=== PATIENT | male | born 1945 | race Caucasian/White ===

== ENCOUNTER 2018-02-06 10:59 | Outpatient (CLI) | payer MEDICARE ==
[2018-02-06 13:08] LABS: #Basophils 0.1 thou/uL (0.0-0.2); #Eosinphils 0.1 thou/uL (0.0-0.7); #Lymphocytes 1.7 thou/uL (1.20-3.40); #Monocytes 0.9 thou/uL (0.11-0.59); #Neutrophils 7.2 thou/uL (1.40-6.50); %Basophils 0.6 % (0.0-1.0); %Eosinophils 1.2 % (0.0-10.0); %Lymphocytes 16.8 % (21.0-51.0); %Monocytes 8.9 % (0.0-10.0); %Neutrophils 72.6 % (42.0-75.0); Hemoglobin 14.7 g/dL (14.0-18.0); Mean Corpuscular HGB CONC 33.4 g/dL (32.0-36.0); Mean Corpuscular Hemoglobin 28.8 pg (27.0-31.0); Mean Platelet Volume 7.5 fL (7.4-10.4); Platelet Count 233 thou/uL (130-400); RBC Distribution Width 15.4 % (11.5-14.5); White Blood Cell (WBC) Count 9.9 thou/uL (4.8-10.8)
[2018-02-06 13:20] LABS: INR-International Normal Ratio 1.2; PTT 30.1 SEC (22.9-36.1); Prothrombin Time 15.5 SEC (12.0-14.7)
[2018-02-06 13:35] LABS: ALT (SGPT) 15 U/L (8-55); AST (SGOT) 18 U/L (5-34); Alkaline Phosphatase 58 U/L (40-150); Anion Gap 14 mmol/L (10-20); BUN (Urea Nitrogen) 13 mg/dL (8.4-25.7); Bilirubin, Total 0.9 mg/dL (0.2-1.2); Calc. Creatinine Clearance 0 mL/min (70-130); Calcium 9.4 mg/dL (7.8-10.44); Carbon Dioxide 29 mmol/L (23-31); Chloride 99 mmol/L (98-107); Estimated GFR-MDRD Greater than 90; Globulin 3.1 g/dL (2.4-3.5); Glucose 136 mg/dL (83-110); Potassium 3.4 mmol/L (3.5-5.1); Protein, Total 7.1 g/dL (5.8-8.1); Sodium 139 mmol/L (136-145)
== END 2018-02-06 11:00 | disposition home or self-care (01) ==
LOC: LABBT 10:59
PROVIDERS: ATTEND Internal Medicine Cardiovascular Disease
DX: Z01.812 Encounter for preprocedural laboratory examination (principal); I25.10 Atherosclerotic heart disease of native coronary artery without angina pectoris
CPT/HCPCS: 80053; 85025; 85610; 85730

== ENCOUNTER 2018-02-09 05:38 | Day surgery (SDC) | payer MEDICARE ==
[2018-02-06 11:31] VITALS: BMI 33.9
[2018-02-09 07:24] LABS: Cardiac Risk 6.5 (Less than 4.5)
[2018-02-09] MEDS ORDERED: Lidocaine 1% (PF) 30 ML VIAL ONE (08:40)
[2018-02-09] MEDS ORDERED: Nitroglycerin 100MG/250ML BOT 0 ML ONE (08:40)
[2018-02-09] MEDS ORDERED: Heparin 10,000 UNITS/1 ML VIAL ONE (08:40)
[2018-02-09] MEDS ORDERED: Verapamil 5 MG/2 ML VIAL ONE (08:50)
[2018-02-09] MEDS ORDERED: Midazolam HCl 2 mg/2 ml Vial ONE ×2 (09:02→13:04)
[2018-02-09] MEDS ORDERED: Fentanyl 100 MCG/2 ML VIAL ONE ×2 (09:02→13:26)
[2018-02-09] MEDS ORDERED: Iopamidol 370 76% 50 ML VIAL FS ONE (09:46)
[2018-02-09] MEDS ORDERED: Iopamidol 370 76% 100 ML VIAL ONE (09:46)
[2018-02-09] MEDS ORDERED: HYDROcodone/Acetaminophen 10/325 mg Tablet ONE (11:53)
[2018-02-09] MEDS ORDERED: hydrALAZINE 20 MG/ML VIAL ONE (12:35)
--- NOTE | 2018-02-09 22:45 | EKG ---
Test Reason : POST STENT Blood Pressure : / mmHG Vent. Rate : 086 BPM Atrial Rate : 125 BPM P-R Int : 000 ms QRS Dur : 110 ms QT Int : 380 ms P-R-T Axes : 000 -33 121 degrees QTc Int : 454 ms Atrial fibrillation Left axis deviation Abnormal ECG When compared with ECG of 09-FEB-2018 11:37, (Unconfirmed) No significant change was found Confirmed by ERIC PIMENTEL, . SBirgit ([id number]) on 02/09/2018 10:44:58 PM Referred By: AMINA Confirmed By:DR. Gabrielle REYES MD
== END 2018-02-09 16:42 | disposition home or self-care (01) ==
LOC: CCL 05:38
PROVIDERS: ATTEND Internal Medicine Cardiovascular Disease
PROC: 027135Z Dilation of Coronary Artery, Two Arteries with Two Drug-eluting Intraluminal Devices, Percutaneous Approach (ICD-10-PCS; principal; 2018-02-09)
PROC: 4A023N7 Measurement of Cardiac Sampling and Pressure, Left Heart, Percutaneous Approach (ICD-10-PCS; 2018-02-09)
PROC: B2111ZZ Fluoroscopy of Multiple Coronary Arteries using Low Osmolar Contrast (ICD-10-PCS; 2018-02-09)
DX: I25.10 Atherosclerotic heart disease of native coronary artery without angina pectoris (principal); I48.2 Chronic atrial fibrillation; I25.5 Ischemic cardiomyopathy; I35.0 Nonrheumatic aortic (valve) stenosis; E78.00 Pure hypercholesterolemia, unspecified; E11.9 Type 2 diabetes mellitus without complications; E78.5 Hyperlipidemia, unspecified; F32.9 Major depressive disorder, single episode, unspecified; Z95.5 Presence of coronary angioplasty implant and graft; Z79.01 Long term (current) use of anticoagulants; Z79.4 Long term (current) use of insulin; Z79.82 Long term (current) use of aspirin; Z79.899 Other long term (current) drug therapy
CPT/HCPCS: 36415; 36416; 80061; 85347; 92928; 93005; 93458; 96374; 99152; 99153; C1769; C1874; C9600; J0360; J1644; J2001; J2250; J3010

== ENCOUNTER 2018-09-28 11:19 | Outpatient (CLI) | payer MEDICARE ==
--- NOTE | 2018-09-28 12:32 | RAD ---
RIGHT SHOULDER 3 VIEWS: HISTORY: Pain in right shoulder following an injury. FINDINGS: Arthrosis changes are noted of the AC and glenohumeral joint. No acute fracture or dislocation. 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 POS: OFF
--- NOTE | 2018-09-28 12:39 | RAD ---
CHEST 1 VIEW AND RIGHT RIBS 2 VIEWS: HISTORY: Right rib pain following a fall. FINDINGS: Heart size is borderline enlarged. There is no pneumothorax or pleural effusion. In the region of t he 7th anterior right rib there is a lucency on the oblique view raising concern for the possibility of a nondisplaced fracture. IMPRESSION: Possible nondisplaced fracture involving the right anterior 7th rib. No pneumothorax or other acute process. POS: OFF
== END 2018-09-28 11:20 | disposition home or self-care (01) ==
LOC: BICRAD 11:19
PROVIDERS: ATTEND Physician Assistant
DX: S49.91XD Unspecified injury of right shoulder and upper arm, subsequent encounter (principal); R07.81 Pleurodynia; M19.011 Primary osteoarthritis, right shoulder

== ENCOUNTER 2018-11-26 06:58 | Day surgery (SDC) | payer MEDICARE ==
[2018-11-26 07:35] VITALS: BP 153/90; TEMP 98.8
[2018-11-26 07:36] VITALS: BMI 33.9
--- NOTE | 2018-11-26 10:19 | CT ---
CT lumbar spine: HISTORY: Back Pain COMPARISON: Noncontrast CT lumbar spine on 11/24/2016. FINDINGS: This examination was performed post myelogram. Vascular calcifications are seen in the abdominal aorta and involving the iliac arteries. Again noted are postsurgical changes lumbar spine with evidence of posterior fusion of the L3-S1 leve ls with bipedicular screws and posterior rods transfix the L3-4, L4-5, and L5-S1 levels. No hardware complication is seen. There is stable grade 1 anterolisthesis of L5 on S1 with stable trace grade 1 anterolisthesis of L4 on L5 as well as suggestion of trace retrolisthesis of L3 on L4. The vertebral body heights are within normal limits. T12-L1 level: There is a mild disc osteophyte complex with vacuum phenomenon seen in the intervertebr al disc. There are facet hypertrophic changes present. As noted on the prior exam, there is mild central canal narrowing. The neural foramen on the right is patent with mild left-sided neural forami nal narrowing. L1-2: There is mild broad-based disc osteophyte complex and facet hypertrophic changes. Mild ligament ous thickening is present. Findings result in moderate central canal narrowing with mild/moderate bilateral neural foraminal narrowing L2-3: There is a disc osteophyte complex with facet hypertrophic changes and ligamentous thickening. There is no opacification of the central canal at this level, and findings are again suggestive of severe central canal narrowing. There is moderate to severe right and moderate left-sided neural fora karen narrowing. L3-4: There is a laminectomy defect at this level. Soft tissue density seen posterior to thecal sac l ikely related to scarring. There is no disc bulge or disc herniation. Central spinal canal and neural foramina are patent. L4-5: Mild posterior osteophyte formation present, but the neural foramina and central canal are [place] nt. Soft tissue density posterior to the level of the thecal sac is likely due to scar tissue. There is contrast outside the confines of the thecal sac which is likely at site of puncture of the t hecal sac related to lumbar puncture. L5-S1: As stated above, there is grade 1 anterolisthesis of L5 on S1. However there is no narrowing o f the thecal sac at this level. There is limited evaluation of each neural foramen due to streak artifact. However, due to degree of anterolisthesis and posterior osteophyte formation, there is at l east moderate and probably severe bilateral neural foraminal narrowing. Findings appear unchanged compared to prior exam in 2017. IMPRESSION: 1. Stable postoperative changes lumbar spine related to posterior fusion of L3-S1 levels. Laminectomy defects are again seen at these levels. 2. Stable grade 1 anterolisthesis of L5 on S1 with suggestion of trace anterolisthesis of L4 on L5 al so similar to prior study. 3. Severe central canal stenosis with moderate left and moderate to severe right-sided neural foramin al narrowing at the L1-2 level. Severe central canal narrowing was also noted on the prior study. No contrast is visualized in the thecal sac at the L2-3 level, but there is contrast within the centr al canal above and below this level.
--- NOTE | 2018-11-26 11:09 | RAD ---
EXAM: XR Myelogram Lumbar Spine PROVIDED CLINICAL HISTORY: Low back pain. History of prior lumbar surgery. Patient complains of bilateral lower extremity radicu lopathy. COMPARISON: None TECHNIQUE: After informed consent was obtained, the patient was placed on the fluoroscopy table in the prone pos ition. An area overlying the L4 vertebral body was marked, and the area was meticulously prepped and draped in usual sterile fashion. Skin and subcutaneous tissues were infiltrated with buffered 1% lidocaine for local anesthesia. A 22-gauge spinal needle was advanced to the level of the thecal sac. The inner stylette was removed with a return of clear cerebral spinal fluid. Approximately 8 mL of Isovue-M 200 contrast was instilled into the thecal sac. The inner stylette was replaced, and the needle was removed. Hemostasis was achieved with direct pressure. Dry sterile dressing was placed at puncture site. Patient was transported to CT scanner for further i maging of the lumbar spine. Patient was then transported to radiology nurses holding for further monitoring prior to discharge. The patient tolerated the procedure well and without immediate complic ation. Fluoroscopy: Time-0.2 minutes Total dose-60.7 mGy meter squared IMPRESSION: 1. Postsurgical changes lower lumbar spine related to posterior fusion with bipedicular screws and po sterior rods transfixing the L3-4, L4-5, and L5-S1 levels. Laminectomy defects are present at these levels. 2. Trace anterolisthesis of L4 on L5 and mild grade 1 anterolisthesis of L5 on S1. There is trace ret rolisthesis of L3 on L4. 3. Prominent vascular calcifications in the abdominal aorta and involving the iliac arteries. 4. Technically successful lumbar myelogram. Please see CT lumbar spine performed after this examinati on for further details.
[2018-11-26] MEDS ORDERED: Iopamidol-M 200 41% 20 ML VIAL ONE (13:22)
== END 2018-11-26 09:20 | disposition home or self-care (01) ==
LOC: RAD 06:58
PROVIDERS: ATTEND Neurological Surgery
DX: M54.16 Radiculopathy, lumbar region (principal); M48.061 Spinal stenosis, lumbar region without neurogenic claudication; I11.0 Hypertensive heart disease with heart failure; I50.9 Heart failure, unspecified; E11.42 Type 2 diabetes mellitus with diabetic polyneuropathy; I25.10 Atherosclerotic heart disease of native coronary artery without angina pectoris; I48.2 Chronic atrial fibrillation; Z79.01 Long term (current) use of anticoagulants; Z79.899 Other long term (current) drug therapy; Z88.0 Allergy status to penicillin; Z88.5 Allergy status to narcotic agent; Z88.8 Allergy status to other drugs, medicaments and biological substances; Z95.5 Presence of coronary angioplasty implant and graft
CPT/HCPCS: 62304; 72132; Q9966

== ENCOUNTER 2019-02-22 09:17 | Outpatient (CLI) | payer MEDICARE ==
[2019-02-22 10:21] LABS: Hemoglobin 13.6 g/dL (14.0-18.0); Mean Corpuscular Hemoglobin 29.6 pg (27.0-31.0); Mean Corpuscular Volume 89.6 fL (78.0-98.0); Mean Platelet Volume 7.1 fL (7.4-10.4); Platelet Count 192 thou/uL (130-400); RBC Distribution Width 13.3 % (11.5-14.5); Red Blood Cell (RBC) Count 4.58 mill/uL (4.70-6.10); White Blood Cell (WBC) Count 9.3 thou/uL (4.8-10.8)
[2019-02-22 10:43] LABS: Anion Gap 12 mmol/L (10-20); BUN (Urea Nitrogen) 12 mg/dL (8.4-25.7); Calc. Creatinine Clearance 0 mL/min (70-130); Calcium 8.8 mg/dL (7.8-10.44); Carbon Dioxide 31 mmol/L (23-31); Chloride 100 mmol/L (98-107); Estimated GFR-MDRD Greater than 90; Glucose 168 mg/dL (83-110); Potassium 4.2 mmol/L (3.5-5.1); Sodium 139 mmol/L (136-145)
== END 2019-02-22 09:18 | disposition home or self-care (01) ==
LOC: LABBT 09:17
PROVIDERS: ATTEND Neurological Surgery
DX: Z01.818 Encounter for other preprocedural examination (principal); M48.061 Spinal stenosis, lumbar region without neurogenic claudication
CPT/HCPCS: 80048; 85027; 93005; 93010

== ENCOUNTER 2019-03-01 06:28 | Day surgery (SDC) | payer MEDICARE ==
[2019-02-22 09:52] VITALS: BMI 33.2
--- NOTE | 2019-02-28 18:07 | HP ---
HISTORY OF PRESENT ILLNESS: Mr. Hawkins is known to our practice for prior evaluation of lower back pain with identified fracture previous fusion construct. He was recommended to have facet and nerve root blocks at that time. He has had several with only limited relief. He returns now with constant pain with symptoms that appear to potentially be radicular, but also symptoms of neurogenic claudication. He has a new CT myelogram performed at [place] that reveals severe L1-L2 canal stenosis that would fit well with his symptoms. PHYSICAL EXAMINATION: GENERAL: He is alert and oriented x3. NEUROLOGIC: His gait is profoundly antalgic, slowed and stooped. His straight leg raise is negative; although, lower extremity exam is limited secondary to pain. PAST MEDICAL HISTORY: Significant for hyperlipidemia, hypertension, congestive heart failure, diabetes, and coronary arterial disease. CURRENT MEDICATIONS: 1. Warfarin. 2. Citalopram. 3. Lisinopril. 4. Metformin. 5. Gabapentin. 6. Clopidogrel. 7. Digoxin. 8. Novolin. 9. Lasix. 10. . 11. Atorvastatin. PAST SURGICAL HISTORY: Cardiac stents, left rotator cuff repair, lumbar spinal fusion, umbilical herniorrhaphy, and cholecystectomy. ASSESSMENT: Lumbar spinal stenosis. PLAN: Dr. Javed met with the patient, reviewed imaging, advocated for L1-L2 decompression. He explained to the patient the risks, benefits, and alternatives to the procedure. The patient expressed understanding and elected to move forward with surgery as discussed. I do believe the patient is mentally competent and capable of making medical decisions for himself. We will move forward with surgery as planned. Job ID: [id number]
[2019-03-01] MEDS ORDERED: Levofloxacin 500 mg/D5W 100 ml Premix Bag ONE (07:24)
[2019-03-01] MEDS ORDERED: Clindamycin/D5W 900 mg/50 ml Premix Bag ONE (07:24)
[2019-03-01] MEDS ORDERED: Thrombin 5000 UNITS/5 ML VIAL ONE (08:09)
[2019-03-01] MEDS ORDERED: Bupivacaine PF 0.5% 30 ML VIAL ONE (08:09)
[2019-03-01] MEDS ORDERED: EPINEPHrine 1 MG/ML AMP ONE (08:09)
[2019-03-01] MEDS ORDERED: Propofol 1,000 MG/100 ML VIAL IV ONE (08:42)
[2019-03-01] MEDS ORDERED: Midazolam HCl 2 mg/2 ml Vial ONE (08:42)
[2019-03-01] MEDS ORDERED: Fentanyl 100 MCG/2 ML VIAL ONE ×3 (08:42→11:27)
[2019-03-01] MEDS ORDERED: SUGAMMADEX SODIUM 500 MG/5 ML VIAL ONE (08:46)
[2019-03-01] MEDS ORDERED: Rocuronium Bromide 50 MG/5 ML VIAL ONE (08:46)
[2019-03-01 09:01] LABS: INR-International Normal Ratio 1.1; PTT 27.1 SEC (22.9-36.1); Prothrombin Time 13.7 SEC (12.0-14.7)
[2019-03-01] MEDS ORDERED: Ondansetron PF 4 MG/2 ML Vial ONE (10:40)
[2019-03-01] MEDS ORDERED: Rocuronium Bromide 10 MG/ML (10ML VIAL) ONE (10:40)
[2019-03-01] MEDS ORDERED: PROPOFOL 200 MG/20 ML VIAL ONE ×2 (10:40)
[2019-03-01] MEDS ORDERED: diphenhydrAMINE 50 MG/ML VIAL ONE (10:40)
[2019-03-01] MEDS ORDERED: Metoclopramide HCl 10 MG/2 ML VIAL ONE (10:40)
[2019-03-01] MEDS ORDERED: Tamsulosin HCl 0.4 MG CAP ONE (11:23)
[2019-03-01] MEDS ORDERED: Morphine 2 MG/ML SYRINGE ONE (12:26)
--- NOTE | 2019-03-01 13:19 | OP ---
DATE OF PROCEDURE: 03/01/2019 INTERIOR MECHANIC: Zackary Ragsdale PA-C INDICATION: Pain. DIAGNOSIS: Adjacent segment stenosis with neurogenic claudication. PROCEDURE PERFORMED: Reoperation of L2-L3 lumbar decompression. ANESTHESIA: General. DESCRIPTION OF PROCEDURE: The patient was brought into the operating room and placed under general anesthesia. He was flipped from the supine to prone position on the operating room table. A linear incision was planned along the superior aspect of previously placed incision from a prior fusion site. After prepping and draping and after an appropriate perioperative pause, the incision was created. The soft tissues were swept away from midline. Self-retaining retractors were placed in the wound for optimal exposure. After confirming the appropriate level with C-arm fluoroscopy, an Adson rongeur was used to move the spinous process at the L2-L3 segment. There was scar inferiorly. A high-speed cutting drill bit as well as 2, 3, and 4 mm Kerrisons were then used to complete the laminectomy at the L2-L3 segment until both the central canal as well as the lateral recesses were decompressed. The wound was then irrigated. Hemostasis was maintained throughout. The wound was then closed in anatomic layers and a pressure dressing was applied. There were no known procedural complications. Job ID: [id number]
[2019-03-01] MEDS ORDERED: HYDROcodone/Acetaminophen 7.5/325 mg Tablet ONE (13:28)
== END 2019-03-01 13:55 | disposition home or self-care (01) ==
LOC: SDC 06:28
PROVIDERS: ATTEND Neurological Surgery
PROC: 01NB0ZZ Release Lumbar Nerve, Open Approach (ICD-10-PCS; principal; 2019-03-01)
DX: M48.062 Spinal stenosis, lumbar region with neurogenic claudication (principal); E78.5 Hyperlipidemia, unspecified; I11.0 Hypertensive heart disease with heart failure; I50.9 Heart failure, unspecified; E11.9 Type 2 diabetes mellitus without complications; I25.10 Atherosclerotic heart disease of native coronary artery without angina pectoris; Z79.01 Long term (current) use of anticoagulants; Z79.4 Long term (current) use of insulin; Z79.899 Other long term (current) drug therapy; Z88.0 Allergy status to penicillin; Z88.5 Allergy status to narcotic agent; Z95.5 Presence of coronary angioplasty implant and graft; Z98.1 Arthrodesis status
CPT/HCPCS: 36415; 36416; 76000; 85610; 85730; J0131; J0171; J1200; J1956; J2250; J2270; J2405; J2704; J2765; J3010; J3490; S0020

== ENCOUNTER 2019-07-04 15:12 | Outpatient (CLI) | payer MEDICARE ==
--- NOTE | 2019-07-04 15:55 | RAD ---
LUMBAR SPINE 3 VIEWS: DATE: 07/04/2019. HISTORY: Low back pain. FINDINGS: Bilateral pedicle screws noted at L3, L4, L5, and S1 with vertically oriented interlocking rods. One of the S1 screws are fractured at the posterior aspect of the S1 vertebral body. This is probably t he right S1 pedicle screw but difficult to visualize with certainty on frontal imaging. There is dis k space narrowing with degenerative end plate change, vacuum disk formation, and anterior osteophyte formation at L5-S1. 1.2 cm of anterolisthesis is noted at the L5-S1 level. There is mild anterolist hesis at L4-5 measuring approximately 5 mm and there is retrolisthesis at L3-4 measuring 6 mm. No ac shun fracture is seen. There is atherosclerotic calcification of the abdominal aorta. Laminectomy ch anges are noted at L2, L3, L4, and L5. IMPRESSION: Postoperative and degenerative change as detailed above. One of the S1 screws are fractured. POS: BARBARA
== END 2019-07-04 15:13 | disposition home or self-care (01) ==
LOC: BICRAD 15:12
PROVIDERS: ATTEND Neurological Surgery
DX: M54.5 Low back pain (principal); M47.817 Spondylosis without myelopathy or radiculopathy, lumbosacral region; M51.37 Other intervertebral disc degeneration, lumbosacral region; M25.78 Osteophyte, vertebrae; M43.16 Spondylolisthesis, lumbar region; M43.17 Spondylolisthesis, lumbosacral region; I70.0 Atherosclerosis of aorta; S32.10XD Unspecified fracture of sacrum, subsequent encounter for fracture with routine healing; Z98.890 Other specified postprocedural states
CPT/HCPCS: 72100

== ENCOUNTER 2020-12-22 08:59 | Outpatient (CLI) | payer MEDICARE | END 2020-12-22 09:00 | disposition home or self-care (01) | LOC: TBSIIMAG 08:59 | PROVIDERS: ATTEND Neurological Surgery | DX: M54.50 Low back pain, unspecified (principal); M43.16 Spondylolisthesis, lumbar region; M43.17 Spondylolisthesis, lumbosacral region | CPT/HCPCS: 72100 ==

== ENCOUNTER 2021-01-07 13:39 | Outpatient (CLI) | payer MEDICARE ==
[~2021-01-07 13:39] MED LIST: Magnevist 469MG/ML 20 ML VIAL ONE
[2021-01-07 14:00] LABS: Estimated GFR-MDRD - POC Greater than 90
== END 2021-01-07 13:40 | disposition home or self-care (01) ==
LOC: TBSIIMAG 13:39
PROVIDERS: ATTEND Neurological Surgery
DX: M54.16 Radiculopathy, lumbar region (principal); Z98.890 Other specified postprocedural states
CPT/HCPCS: 72158; 82565

== ENCOUNTER 2021-01-28 10:34 | Outpatient (CLI) | payer MEDICARE | END 2021-01-28 10:35 | disposition home or self-care (01) | LOC: BICCT 10:34 | PROVIDERS: ATTEND Neurological Surgery | DX: M47.26 Other spondylosis with radiculopathy, lumbar region (principal); M51.16 Intervertebral disc disorders with radiculopathy, lumbar region; Z98.1 Arthrodesis status | CPT/HCPCS: 72131 ==

== ENCOUNTER 2021-02-19 09:40 | Outpatient (CLI) | payer MEDICARE ==
[2021-02-19 11:22] LABS: Mean Corpuscular HGB CONC 31.7 g/dL (32.0-36.0); Mean Corpuscular Hemoglobin 28.4 pg (27.0-33.0); Mean Corpuscular Volume 89.5 fl (81.2-95.1); Mean Platelet Volume 9.8 fl (7.4-10.4); Platelet Count 236 10x3/uL (150-450); Red Blood Cell (RBC) Count 4.93 10x6/uL (4.32-5.72); White Blood Cell (WBC) Count 9.5 10x3/uL (3.5-10.5)
[2021-02-19 11:32] LABS: Anion Gap 14 mmol/L (10-20); BUN (Urea Nitrogen) 11 mg/dL (8.4-25.7); Calc. Creatinine Clearance 0 mL/min (70-130); Carbon Dioxide 31 mmol/L (23-31); Chloride 100 mmol/L (98-107); Glucose 165 mg/dL (83-110); Potassium 3.3 mmol/L (3.5-5.1); Sodium 142 mmol/L (136-145)
[2021-02-19 11:33] LABS: INR-International Normal Ratio 2.1; PTT 36.8 sec (22.0-33.0); Prothrombin Time 22.7 sec (9.5-12.1)
[2021-02-19 21:44] LABS: SARS-CoV-2 PCR by NAA Not Detected (NotDetected)
== END 2021-02-19 09:41 | disposition home or self-care (01) ==
LOC: LABBT 09:40
PROVIDERS: ATTEND Neurological Surgery
DX: Z01.812 Encounter for preprocedural laboratory examination (principal); Z20.822 Contact with and (suspected) exposure to COVID-19
CPT/HCPCS: 80048; 85027; 85610; 85730; U0003; U0005

== ENCOUNTER 2021-02-24 05:43 | Day surgery (SDC) | payer MEDICARE ==
[2021-02-23 09:57] VITALS: BMI 32.3
[2021-02-24] MEDS ORDERED: Clindamycin/D5W 900 mg/50 ml Premix Bag ONE (06:39)
[2021-02-24] MEDS ORDERED: Levofloxacin 500 mg/D5W 100 ml Premix Bag ONE (06:39)
[2021-02-24] MEDS ORDERED: Fentanyl 100 MCG/2 ML VIAL ONE ×3 (06:51→11:23)
[2021-02-24] MEDS ORDERED: Ketamine 50 MG/ML (10ML VIAL) ONE (06:51)
[2021-02-24 06:56] LABS: INR-International Normal Ratio 1.1; PTT 29.2 sec (22.9-36.1); Prothrombin Time 13.9 sec (12.0-14.7)
[2021-02-24] MEDS ORDERED: Thrombin 5000 UNITS/5 ML VIAL ONE (07:52)
[2021-02-24] MEDS ORDERED: EPINEPHrine 1 MG/ML AMP ONE (07:52)
[2021-02-24] MEDS ORDERED: Bupivacaine PF 0.5% 30 ML VIAL ONE (07:52)
[2021-02-24] MEDS ORDERED: Ondansetron PF 4 MG/2 ML Vial ONE (08:40)
[2021-02-24] MEDS ORDERED: ePHEDrine 50 MG/ML VIAL ONE (08:40)
[2021-02-24] MEDS ORDERED: Phenylephrine 10 MG/ML VIAL ONE (08:40)
[2021-02-24] MEDS ORDERED: Dexamethasone 20 MG/5 ML VIAL ONE (08:40)
[2021-02-24] MEDS ORDERED: PROPOFOL 200 MG/20 ML VIAL ONE (08:40)
[2021-02-24] MEDS ORDERED: Rocuronium Bromide 10 MG/ML (10ML VIAL) ONE (08:40)
[2021-02-24] MEDS ORDERED: Lidocaine 1% PF 5 ML VIAL ONE (08:40)
[2021-02-24] MEDS ORDERED: SUGAMMADEX SODIUM 200 MG/2 ML VIAL ONE (10:04)
[2021-02-24] MEDS ORDERED: Tamsulosin HCl 0.4 MG CAP ONE (11:18)
[2021-02-24] MEDS ORDERED: HYDROcodone/Acetaminophen 5/325 mg Tablet ONE (12:48)
== END 2021-02-24 14:30 | disposition home or self-care (01) ==
LOC: SDC 05:43
PROVIDERS: ATTEND Neurological Surgery
PROC: 01NB0ZZ Release Lumbar Nerve, Open Approach (ICD-10-PCS; principal; 2021-02-24)
DX: M48.062 Spinal stenosis, lumbar region with neurogenic claudication (principal); M54.16 Radiculopathy, lumbar region; E78.5 Hyperlipidemia, unspecified; M19.90 Unspecified osteoarthritis, unspecified site; J30.2 Other seasonal allergic rhinitis; E11.9 Type 2 diabetes mellitus without complications; I25.10 Atherosclerotic heart disease of native coronary artery without angina pectoris; I10 Essential (primary) hypertension; Z98.1 Arthrodesis status; Z79.01 Long term (current) use of anticoagulants; Z79.02 Long term (current) use of antithrombotics/antiplatelets; Z79.84 Long term (current) use of oral hypoglycemic drugs; Z79.899 Other long term (current) drug therapy; Z95.5 Presence of coronary angioplasty implant and graft
CPT/HCPCS: 76000; 85610; 85730; 93005; 93010; J0171; J1100; J1956; J2370; J2405; J2704; J3010; J3490; S0020

== ENCOUNTER 2021-08-04 08:47 | Outpatient (CLI) | payer OTHER ==
[2021-08-04 11:06] LABS: Estimated GFR-MDRD - POC Greater than 90
== END 2021-08-04 08:48 | disposition home or self-care (01) ==
LOC: BICMRI 08:47
PROVIDERS: ATTEND Family Medicine
DX: R25.1 Tremor, unspecified (principal)
CPT/HCPCS: 70553; 82565

== ENCOUNTER 2022-09-19 07:56 | Day surgery (SDC) | payer OTHER ==
[2022-09-15 08:43] VITALS: BMI 31.1
[2022-09-15 09:42] LABS: Hemoglobin 12.6 g/dL (13.5-17.5); Mean Corpuscular Hemoglobin 28.9 pg (27.0-33.0); Mean Corpuscular Volume 93.1 fl (81.2-95.1); Mean Platelet Volume 9.9 fl (7.4-10.4); Platelet Count 222 10x3/uL (150-450); Red Blood Cell (RBC) Count 4.36 10x6/uL (4.32-5.72); White Blood Cell (WBC) Count 9.8 10x3/uL (3.5-10.5)
[2022-09-15 10:09] LABS: Anion Gap 13 mmol/L (10-20); BUN (Urea Nitrogen) 18 mg/dL (8.4-25.7); Calc. Creatinine Clearance 116 mL/min (70-130); Carbon Dioxide 31 mmol/L (23-31); Chloride 102 mmol/L (98-107); Estimated GFR 93; Glucose 162 mg/dL (83-110); Potassium 4.4 mmol/L (3.5-5.1); Sodium 142 mmol/L (136-145)
[2022-09-15 10:11] LABS: INR-International Normal Ratio 1.1; PTT 28.6 sec (22.0-33.0); Prothrombin Time 12.2 sec (9.5-12.1)
[2022-09-19] MEDS ORDERED: PROPOFOL 200 MG/20 ML VIAL ONE (07:59)
== END 2022-09-19 09:05 | disposition home or self-care (01) ==
LOC: SDC 07:56
PROVIDERS: ATTEND Internal Medicine Cardiovascular Disease
DX: I48.20 Chronic atrial fibrillation, unspecified (principal); I11.0 Hypertensive heart disease with heart failure; I50.22 Chronic systolic (congestive) heart failure; I25.5 Ischemic cardiomyopathy; E11.9 Type 2 diabetes mellitus without complications; I35.0 Nonrheumatic aortic (valve) stenosis; I25.10 Atherosclerotic heart disease of native coronary artery without angina pectoris; E78.5 Hyperlipidemia, unspecified; Z79.01 Long term (current) use of anticoagulants; Z79.4 Long term (current) use of insulin; Z79.84 Long term (current) use of oral hypoglycemic drugs; Z79.899 Other long term (current) drug therapy; Z90.49 Acquired absence of other specified parts of digestive tract; Z88.6 Allergy status to analgesic agent; Z88.0 Allergy status to penicillin; Z88.1 Allergy status to other antibiotic agents
CPT/HCPCS: 80048; 85027; 85610; 85730; 93312; J2704

== ENCOUNTER 2023-06-02 07:03 | Day surgery (SDC) | payer OTHER ==
[2023-06-02] MEDS ORDERED: HYDROcodone/Acetaminophen 10/325 mg Tablet ONE ×3 (10:22→14:55)
[2023-06-02] MEDS ORDERED: Lidocaine 1% (PF) 30 ML VIAL ONE (10:48)
[2023-06-02] MEDS ORDERED: Heparin 10,000 UNITS/ 10 ML VIAL ONE (10:48)
[2023-06-02] MEDS ORDERED: fentaNYL 50 mcg/mL 1 mL Vial ONE (12:56)
[2023-06-02] MEDS ORDERED: Midazolam HCl 2 mg/2 ml Vial ONE (12:57)
== END 2023-06-02 17:40 | disposition home or self-care (01) ==
LOC: CCL 07:03
PROVIDERS: ATTEND Internal Medicine Cardiovascular Disease
PROC: 4A023N8 Measurement of Cardiac Sampling and Pressure, Bilateral, Percutaneous Approach (ICD-10-PCS; principal; 2023-06-02)
PROC: B200YZZ Plain Radiography of Single Coronary Artery using Other Contrast (ICD-10-PCS; 2023-06-02)
DX: I25.10 Atherosclerotic heart disease of native coronary artery without angina pectoris (principal); I35.0 Nonrheumatic aortic (valve) stenosis; I48.20 Chronic atrial fibrillation, unspecified; I25.5 Ischemic cardiomyopathy; I42.0 Dilated cardiomyopathy; E11.9 Type 2 diabetes mellitus without complications; I10 Essential (primary) hypertension; E78.5 Hyperlipidemia, unspecified; F32.A Depression, unspecified; Z79.84 Long term (current) use of oral hypoglycemic drugs; Z88.0 Allergy status to penicillin; Z79.899 Other long term (current) drug therapy; Z90.49 Acquired absence of other specified parts of digestive tract
CPT/HCPCS: 80061; 82962; 85347; 93460; C1751; C1769 ×2; J3010; 36416; 99152; 99153; C1894; J1644; J2001; J2250